=== PATIENT | female | born 1945 | race Caucasian/White ===

== ENCOUNTER 2023-07-17 12:44 | Emergency (ER) | payer MEDICARE, OTHER ==
[~2023-07-17] VITALS: Ht 170.2 cm; Wt 76.8 kg
[2023-07-17 13:05] LABS: BASOPHILS 0.6 % (0-2); HEMATOCRIT 37.2 % (35.0-50.0); HEMOGLOBIN 12.6 g/dL (12.0-18.0); LYMPHOCYTES 28.2 % (24-44); MCH 30.5 (27-36); MCHC 33.9 g/dl (30-36); MCV 89.9 fl (81-99); MONOCYTES 8.4 % (0-12); NEUTROPHILS 58.8 % (39-80); PLATELET COUNT 268 K/uL (140-440); RBC 4.13 M/ul (4.3-5.7); RDW 12.9 (10.5-15.0)
[2023-07-17 13:24] LABS: ALBUMIN 4.1 g/dL (3.4-5.0); ALBUMIN/GLOBULIN RATIO 1.21 (1.1-2.4); ANION GAP 8.3 (7-21); BILIRUBIN, TOTAL 0.6 ng/dL (0.2-1.0); BUN/CREATININE RATIO 20.79 (6.0-28.6); CALCIUM 9.4 mg/dL (8.5-10.1); CREATININE, SERUM 1.01 mg/dL (0.55-1.02); POTASSIUM 4.3 mmol/L (3.5-5.1); PROTEIN, TOTAL 7.5 g/dL (6.4-8.2)
[2023-07-17 15:55] VITALS: BP 189/52
--- NOTE | 2023-07-19 17:07 | EKG ---
[facility] [address] [facility] [place] [address] Signed Sinus bradycardia Moderate voltage criteria for LVH, may be normal variant ( R in aVL , [place] product ) Borderline ECG No previous ECGs available Confirmed by CECELIA RAMIREZ MD ([id number]) on 07/19/2023 5:07:23 PM Electronically Signed By: CECELIA RAMIREZ 07/19/23 1707 PATIENT NAME: VERO KELLY Electrocardiogram DATE OF : 49 PHYSICIAN: CECELIA RAMIREZ REPORT #: [id number] REPORT IS CONFIDENTIAL AND NOT TO BE RELEASED WITHOUT AUTHORIZATION
== END 2023-07-17 15:55 | disposition home or self-care (01) ==
LOC: ED 12:44
PROVIDERS: Emergency Medicine
DX: I10 Essential (primary) hypertension (principal); R07.2 Precordial pain
CPT/HCPCS: 36415; 71045; 80053; 83735; 84484; 85025; 93005; 93010; 99285-25

== ENCOUNTER 2025-04-22 11:28 | Emergency (ER) | payer MEDICARE, OTHER ==
[~2025-04-22] VITALS: Ht 170.2 cm; Wt 77.0 kg
[2025-04-22] MEDS ORDERED: METOPROLOL TAR100 MG PO (11:43)
[2025-04-22] MEDS ORDERED: ASPIRIN EC325 MG PO (11:43)
[2025-04-22] MEDS ORDERED: CANDESARTAN CIL32 MG PO (11:43)
[2025-04-22] MEDS ORDERED: ATORVASTATIN CA20 MG PO (11:43)
[2025-04-22 11:58] LABS: BASOPHILS 0.7 % (0.1-1.2); EOSINOPHILS 3.5 % (0.7-5.8); HEMATOCRIT 38.5 % (34.1-44.9); HEMOGLOBIN 12.7 g/dL (11.2-15.7); LYMPHOCYTES 36.7 % (19.3-51.7); MCH 30.2 PG (25.6-32.2); MCV 91.7 fL (79.4-94.8); MONOCYTES 8.3 % (4.7-12.5); NEUTROPHILS 50.7 % (34.0-71.1); PLATELET COUNT 229 K/uL (182-369)
[2025-04-22 12:19] LABS: ALBUMIN 3.8 g/dL (3.4-5.0); ALBUMIN/GLOBULIN RATIO 1.03 (1.1-2.4); ANION GAP 13.3 (7-21); BILIRUBIN, TOTAL 0.6 mg/dL (0.2-1.0); BUN/CREATININE RATIO 22.12 (6.0-28.6); CALCIUM 9.4 mg/dL (8.5-10.1); CREATININE, SERUM 1.13 mg/dL (0.55-1.02); MAGNESIUM 2.2 mg/dL (1.8-2.4); POTASSIUM 4.3 mmol/L (3.5-5.1); PROTEIN, TOTAL 7.5 g/dL (6.4-8.2); TSH, 3RD GENERATION 4.588 uIU/mL (0.358-3.740)
[2025-04-22 13:00] LABS: AMPHETAMINES, URINE NEGATIVE (NEGATIVE); BARBITURATES, URINE NEGATIVE (NEGATIVE); BENZODIAZEPINE, URINE NEGATIVE (NEGATIVE); BUPRENORPHINE, URINE NEGATIVE (NEGATIVE); CANNABINOID, URINE NEGATIVE (NEGATIVE); COCAINE, URINE NEGATIVE (NEGATIVE); ECSTASY, URINE NEGATIVE (NEGATIVE); FENTANYL, URINE NEGATIVE (NEGATIVE); METHADONE, URINE NEGATIVE (NEGATIVE); OPIATES, URINE NEGATIVE (NEGATIVE); OXYCODONE, URINE NEGATIVE (NEGATIVE); PHENCYCLIDINE, URINE NEGATIVE (NEGATIVE)
[2025-04-22] MEDS ORDERED: LABETALOL HCL 20 MG/4 ML VIAL IV ONE ×2 (13:30→15:00)
[2025-04-22] MEDS ORDERED: NITROGLYCERIN PACKET TOP ONE (14:30)
[2025-04-22] MEDS ORDERED: cloNIDine HCL 0.1 MG TAB PO ONE (16:00)
[2025-04-22] MEDS ORDERED: hydrALAZINE HCL 20 MG/ML VIAL IV ONE (16:30)
[2025-04-22] MEDS ORDERED: SODIUM CHLORIDE 0.9% 1,000 ML IV PRN (17:15)
[2025-04-22] MEDS ORDERED: ondansetron HCL 4 MG/2 ML VIAL IV ONE (19:00)
[2025-04-22] MEDS ORDERED: ASPIRIN 81 MG CHEW PO ONE (19:00)
[2025-04-22] MEDS ORDERED: CLOPIDOGREL BISULFATE 75 MG TAB PO ONE (19:00)
[2025-04-22] MEDS ORDERED: MAGNESIUM HYDROXIDE/AL HYDROX 30 ML CUP PO ONE (19:00)
[2025-04-22 20:43] VITALS: BP 141/56
--- NOTE | 2025-04-23 10:13 | EKG ---
[facility] [address] [facility] [place] [address] Signed Normal sinus rhythm Moderate voltage criteria for LVH, may be normal variant ( R in aVL , [place] product ) Nonspecific T wave abnormality Abnormal ECG Confirmed by Emery Parmar DO ([id number]) on 04/23/2025 10:12:58 AM Electronically Signed By: EMERY PARMAR DO 04/23/25 1013 PATIENT NAME: DWIGHTVERO CARMELLA Electrocardiogram DATE OF : 49 PHYSICIAN: EMERY PARMAR DO REPORT #: [id number] REPORT IS CONFIDENTIAL AND NOT TO BE RELEASED WITHOUT AUTHORIZATION
== END 2025-04-22 20:43 | disposition short-term general hospital (02) ==
LOC: ED 11:28
PROVIDERS: Emergency Medicine
DX: I16.0 Hypertensive urgency (principal); I20.9 Angina pectoris, unspecified; I10 Essential (primary) hypertension; Z79.82 Long term (current) use of aspirin; Z79.899 Other long term (current) drug therapy
CPT/HCPCS: 36415; 70450; 70496; 70498; 71045; 80053; 80307; 83735; 84439; 84443; 84484; 85025; 93005; 93010; 99285-25; A9270; J0360; J2405; J7030; Q9967